=== PATIENT | male | born 1970 | race Caucasian/White ===

== ENCOUNTER → 2019-09-08 | Outpatient (CLI) | payer OTHER ==
[~2019-09-08] MED LIST: REGADENOSON 0.4 MG/5 ML DISP.SYRIN. IV ONE
--- NOTE | 2019-09-08 09:42 | PCVCIMAG ---
APPROVED REPORT Study performed: 09/08/2019 08:14:56 EXAM: Comprehensive 2D, Doppler, and color-flow Echocardiogram Patient Location: Echo lab Status: routine BSA: 2.17 HR: 96 bpmBP: 130/86 mmHg Rhythm: NSR Other Information Study Quality: Good Risk Factors: Cardiac Risk Factors: HTN, Hyperlipidemia, DM, FHX of CAD, Smoking 2D Dimensions IVSd: 11.43 (7-11mm)LVOT Diam: 21.82 (18-24mm) LVDd: 46.07 mm PWd: 13.01 (7-11mm)Ascending Ao: 31.71 (22-36mm) LVDs: 37.67 (25-40mm) Left Atrium: 38.03 (27-40mm) Aortic Root: 29.22 mm LV Single Plane 4CH: 39.29 % LV Single Plane 2CH: 40.43 % Biplane EF: 40.1 % Volumes Left Atrial Volume (Systole) Single Plane 4CH: 28.04 mLSingle Plane 2CH: 35.10 mL LA ESV Index: 15.00 mL/m2 Aortic Valve AoV Peak Farhan.: 1.02 m/s AO Peak Gr.: 4.14 mmHgLVOT Max P.09 mmHg LVOT Max V: 0.88 m/s SHAVONNE Vmax: 3.22 cm2 Mitral Valve E/A Ratio: 0.9 MV Decel. Time: 94.14 ms MV E Max Farhan.: 0.66 m/s MV A Farhan.: 0.76 m/s IVRT: 110.73 ms TDI E/Lateral E': 9.43E/Medial E': 9.43 Medial E' Farhan.: 0.07 m/s Lateral E' Farhan.: 0.07 m/s Pulmonary Valve PV Peak Gr.: 1.97 mmHg Pulmonary Vein P Vein S: 0.45 m/sP Vein A: 0.35 m/s P Vein D: 0.31 m/sP Vein A Dur.: 72.7 msec P Vein S/D Ratio: 1.45 Left Ventricle The left ventricle is normal size. There is normal LV segmental wall motion. There is normal left ventricular wall thickness. Left ventricular systolic function is normal LVEF is 50-55%. Mild diastolic dysfunction is present (impaired relaxation pattern). Right Ventricle The right ventricle is normal size. The right ventricular systolic function is normal. Atria The left atrium size is normal. The right atrium size is normal. Aortic Valve The aortic valve is normal in structure. No aortic regurgitation is present. There is no aortic valvular stenosis. Mitral Valve The mitral valve is normal in structure. There is no mitral valve regurgitation noted. No evidence of mitral valve stenosis. Tricuspid Valve The tricuspid valve is normal in structure. Trace tricuspid regurgitation. Pulmonic Valve The pulmonary valve is normal in structure. There is no pulmonic valvular regurgitation. Great Vessels The aortic root is normal in size. IVC is normal in size and collapses >50% with inspiration. Pericardium There is no pericardial effusion. <Conclusion> Left ventricular systolic function is normal There is normal LV segmental wall motion. LVEF is 50-55%. Mild diastolic dysfunction The aortic valve is normal in structure. No aortic regurgitation or stenosis The mitral valve is normal in structure. No mitral valve regurgitation. Pulmonary artery systolic pressure could not be reliably ascertained There is no pericardial effusion.
--- NOTE | 2019-09-08 16:54 | PCVCIMAG ---
APPROVED REPORT Imaging Protocol: Rest Tc-99m/Stress Tc-99m 1 day Study performed: 09/08/2019 09:20:18 Indication: Chest pain Patient Location: Out-Patient Stress Nurse: Sravani Haynes RN, Marcia Lai RN PA Tech:Cleopatra Amy [facility] Ht: 5 ft 10 in Wt: 213 lbs BSA: 2.14 m2 HR: 90 bpm BP: 137/84 mmHg BMI: 30.5 Rhythm: Sinus Rhythm, T wave abnormalities Medical History Medical History: Hyperlipidemia, HTN, Diabetes, Former Smoker Medications: Lisinopril, Amlodipine, Aspirin, Statin Allergies: No known drug allergies Cardiac Risk Factors: Age, FHX of CAD Pretest Chest Pain Characteristics: No chest pain Resting Data Rest SPECT myocardial perfusion imaging was performed in supine position 45 minutes following the intravenous injection of 10 mCi of Tc-99m Sestamibi. Time of rest injection: 0900 Date: 09/08/2019 Administration Route: IV Administration Site: Left Arm Pharmacologic Stress Pharmacologic stress test was performed by injecting Regadenoson 0.4 mg IV push over 10-15 seconds immediately followed by the intravenous injection of 34.6 mCi of Tc-99m Sestamibi. Time of stress injection: 1030 Date: 09/08/2019 Administration Route: IV Administration Site: Left Arm Gated Stress SPECT was performed 45 minutes after stress injection. The images were gated to evaluate regional wall motion and calculate left ventricular ejection fraction. Stress Test Details Stress Test: Pharmacologic stress testing performed using 0.4 mg of regadenoson per 5 mL given IV over 10 seconds. Reason for pharmacologic stress test: physical limitation. HRMax Heart Rate (APMHR): 171 bpm Resting HR: 90 bpmTarget HR (85% APMHR): 145 bpm Max HR Achieved: 116 bpm % of APMHR: 67 Recovery HR: 106 bpm BP Resting BP: 137/84 mmHg Max BP: 155/76 mmHg Recovery BP: 146/85 mmHg ECG Resting ECG: Sinus Rhythm, nonspecific ST-T abnormalities Stress ECG: Sinus Rhythm, nonspecific ST-T abnormalities ST Change: None Maximum ST Deviation: 0 mm Arrhythmia: PVC's Recovery ECG: Sinus Rhythm, nonspecific ST-T abnormalities Recovery ST Change: Normal Recovery ST Deviation: 0 mm Recovery Arrhythmia: None Clinical Reason for Termination: Completed protocol Stress Symptoms: Dyspnea Symptoms resolved during recovery.Symptoms resolved with caffeine. Stress ECG Conclusion ECG: Non-ischemic Clinical: Non-ischemic Study Quality Study: Good Study Data Post stress, the left ventricular ejection was 42%.. SSS: 0 SRS: 0 SDS: 0 TID = 0.92. Perfusion No evidence of stress induced ischemia or prior myocardial infarction. Wall Motion Normal left ventricular size with no regional wall motion abnormalities. Mildly decreased left ventricular systolic function. Nuclear Conclusion No evidence of stress induced ischemia or prior myocardial infarction. Normal left ventricular size with no regional wall motion abnormalities. Post stress, the left ventricular ejection was 42%. Interpreted by: Marshall Villegas MD Electronically Approved: 09/08/2019 15:48:52 <Conclusion> ECG: Non-ischemic Clinical: Non-ischemic
== END | disposition home or self-care (01) ==
LOC: PCVCIMAG 08:33
PROVIDERS: ATTEND Internal Medicine
DX: R07.9 Chest pain, unspecified (principal); R07.2 Precordial pain; E11.9 Type 2 diabetes mellitus without complications; E78.5 Hyperlipidemia, unspecified; I10 Essential (primary) hypertension; Z87.891 Personal history of nicotine dependence; Z82.49 Family history of ischemic heart disease and other diseases of the circulatory system
CPT/HCPCS: 78452; 93017; 93306; A9500; J2785